=== PATIENT | male | born 2000 | race Caucasian/White ===

== ENCOUNTER 2022-11-17 20:49 | Observation (INO) | payer OTHER ==
[~2022-11-17] VITALS: Ht 180.3 cm; Wt 68.1 kg
[2022-11-17 21:38] LABS: BASOPHILS 0.2 % (0-2); EOSINOPHILS 0.7 % (0-6); HEMATOCRIT 47.4 % (35.0-50.0); HEMOGLOBIN 15.6 g/dL (12.0-18.0); LYMPHOCYTES 10.4 % (24-44); MCH 28.7 (27-36); MONOCYTES 6.8 % (0-12); NEUTROPHILS 81.9 % (39-80); PLATELET COUNT 237 K/uL (140-440); RBC 5.45 M/ul (4.3-5.7); RDW 13.5 (10.5-15.0)
[2022-11-17 21:52] LABS: ALBUMIN 4.4 g/dL (3.4-5.0); ALBUMIN/GLOBULIN RATIO 1.26 (1.1-2.4); ANION GAP 12.8 (7-21); BILIRUBIN, TOTAL 1.2 ng/dL (0.2-1.0); BUN/CREATININE RATIO 11.5 (6.0-28.6); CALCIUM 9.2 mg/dL (8.5-10.1); CREATININE, SERUM 1.13 mg/dL (0.70-1.30); POTASSIUM 3.8 mmol/L (3.5-5.1); PROTEIN, TOTAL 7.9 g/dL (6.4-8.2)
[2022-11-17 23:39] LABS: BILIRUBIN, URINE NEGATIVE (negative); BLOOD/HGB, URINE NEGATIVE (Negative); KETONE, URINE NEGATIVE (Negative); LEUK ESTERASE, URINE NEGATIVE (negative); NITRITE, URINE NEGATIVE (negative); PH, URINE 6.5 (5-7)
[2022-11-18] VITALS (8 sets, daily range): BP systolic 107–150; BP diastolic 40–52
--- NOTE | 2022-11-18 01:08 | NUR ---
PT TO FLOOR VIA STRETCHER WITH ED RN. REPORT RECEIVED. PT A&O X 4. ABLE TO TRANSFER SELF FROM STRETCHER TO BED. ORDERS RECEIVED. PT DENIES PAIN OR NAUSEA AT THIS TIME. ADMISSION ASSESSMENT COMPLETE. BOWEL TONES ACTIVE. ABD SOFT. IV ABX INFUSING PER ORDER. CPOX PLACED. PT AWARE OF NPO STATUS. VERBALIZES UNDERSTANDING. PERSONAL CARE SUPPLIES PROVIDED. MOM AND GIRLFRIEND TO SPEND THE NIGHT. LINENS PROVIDED. PT/FAMILY DENY QUESTIONS OR CONCERNS. PT ORIENTED TO ROOM AND NURSE CALL LIGHT. NO FURTHER NEEDS.
--- NOTE | 2022-11-18 01:30 | NUR ---
IV ABX COMPLETE. MAINTENANCE FLUIDS INFUSING PER ORDER. PT UP TO BR TO VOID 175 ML CLEAR YELLOW URINE. BACK TO BED, SABINE WELL. PT DENIES PAIN OR NAUSEA. FAMILY IN ROOM. NO FURTHER NEEDS.
--- NOTE | 2022-11-18 06:25 | NUR ---
PT UP TO BR WITH SBA TO VOID. BACK TO BED, SABINE FAIR. REPORTS ABD PAIN 10/10. PRN FOR PAIN ADMIN PER EMAR. PT DENIES NAUSEA. VS AND I&O OBTAINED. WARM BLANKET PROVIDED. NO FURTHER NEEDS.
--- NOTE | 2022-11-18 07:29 | CONS ---
[facility] [address], [place] [address] Signed DATE OF CONSULTATION: 11/18/2022 CHIEF COMPLAINT: Right lower quadrant abdominal pain. HISTORY OF PRESENT ILLNESS: Ari is a 21-year-old young man, who awoke in the morning with periumbilical abdominal pain that is now localized to the right lower quadrant. He was having some nausea. He came to the emergency room for evaluation. He was tender in the right lower quadrant with an elevated white blood cell count. CT scan confirmed his appendix about 11 mm in diameter with some mild periappendiceal inflammation. He was given pain control along with Rocephin and Flagyl. I was asked to admit him as a general surgeon on-call. He has done well overnight. His mom and girlfriend are with him this morning. PAST MEDICAL HISTORY: He fractured his arm when he was age 7 and had to have a cast. PAST SURGICAL HISTORY: None. SOCIAL HISTORY: He does not smoke or drink. He has no primary care provider. He prefers the [facility]. He has one sibling who is younger than him. He works for [employer]. Venancio is his father at [phone]. His mother is Kayy at [phone] and his girlfriend is Taiwo at [phone]. They live in [place], [place]. FAMILY HISTORY: None. REVIEW OF SYSTEMS: He had 10 systems reviewed and he talked about his arm fracture, although they cannot remember it was the right or the left. ALLERGIES: None. MEDICATIONS: None. PHYSICAL EXAMINATION: VITAL SIGNS: His blood pressure is 107/49, heart rate is 60, respiratory rate is 18, temperature is 98.1. He is 99% on room air. He is 5 feet 11 inches at 68 kg with a body mass index of 20. Electronically Signed By: LAURIE SULLIVAN MD 11/18/22 0729 PATIENT NAME: ARI TURNER CONSULTATION DATE OF : 02 REPORT #: [id number] PHYSICIAN: LAURIE SULLIVAN MD PCP: NO PRIMARY CARE PHYSICIAN REPORT IS CONFIDENTIAL AND NOT TO BE RELEASED WITHOUT AUTHORIZATION [facility] [address], [place] [address] Signed GENERAL: On exam, Ari is a 21-year-old young man, who is lying supine in his hospital bed, sleeping. His mom and girlfriend are in the room. He does not have his contact lenses in place and so he cannot see very far. He does not appear systemically ill or toxic. LUNGS: Clear to auscultation bilaterally. HEART: Regular rate and rhythm without murmurs. ABDOMEN: Flat, but he is certainly tender in the right lower quadrant, if not some mild localized peritoneal signs and symptoms. LABORATORY DATA: His white blood cell count is 16,000, hemoglobin 15, neutrophils 82. Electrolytes are unremarkable. UA was negative. Albumin is 4.4. RADIOGRAPHIC STUDIES: CT scan of the abdomen and pelvis is reviewed, both the images and the report. We can see the inflamed thickened appendix in the right lower quadrant with some mild periappendiceal inflammation. ASSESSMENT AND PLAN: Ari is a 21-year-old young man, who presents with acute appendicitis. He has been admitted, given IV fluids, pain control and antibiotics. I reviewed with him the above findings. I brought a brochure today on appendicitis. We looked at it page by page. He understands the location and function of the appendix. We have discussed laparoscopic versus open appendectomy. We have reviewed the expected intraop and postop course. There is risk including, but not limited to bleeding, infection, scarring, change in contour of the skin, damage to bowel, appendiceal stump leak, postoperative intra-abdominal abscess, incisional hernias and other unforeseen comorbidities. He had expressed understanding and would like to proceed. We will be adding him on to our OR schedule this morning. They have expressed understanding and agreed with the above plan. Laurie Sullivan MD ALB/MODL /[id number] cc: Laurie Sullivan MD Electronically Signed By: LAURIE SULLIVAN MD 11/18/22 0729 PATIENT NAME: ARI TURNER CONSULTATION DATE OF : 02 REPORT #: [id number] PHYSICIAN: LAURIE SULLIVAN MD PCP: NO PRIMARY CARE PHYSICIAN REPORT IS CONFIDENTIAL AND NOT TO BE RELEASED WITHOUT AUTHORIZATION [address] [address] Signed Copies: LAURIE SULLIVAN MD ~ Electronically Signed By: LAURIE SULLIVAN MD 11/18/22 0729 PATIENT NAME: ARI TURNER CONSULTATION DATE OF : 02 REPORT #: [id number] PHYSICIAN: LAURIE SULLIVAN MD PCP: NO PRIMARY CARE PHYSICIAN REPORT IS CONFIDENTIAL AND NOT TO BE RELEASED WITHOUT AUTHORIZATION
--- NOTE | 2022-11-18 07:38 | NUR ---
RECEIVED REPORT FROM NOC NURSE. PT IS A/O, RESPIRATIONS EVEN AND REGULAR. STATES HE IS COMFORTABLE ATT. IV FLUIDS RUNNING. MOM AND GIRLFRIEND AT BEDSIDE.
--- NOTE | 2022-11-18 08:29 | NUR ---
PT [place] GIVEN, GIRLFRIEND ASSISTING, VERBAL DIRECTIONS GIVEN, DAD IN RM WELL NOTHING ZENA TO REPORT
--- NOTE | 2022-11-18 08:50 | NUR ---
SPOKE TO PATIENT ABOUT THE DISCHARGE PLAN.PATIENT LIVES WITH HIS PARENTS WHO WILL HELP NEEDED. PATIENT ALSO HAS A GIRL FRIEND WHO CAN HELP NEEDED. PATIENT CAN DO HIS OWN ADLS. PATIENT'S PARENTS TAKE CARE OF FOOD AND HOUSING. PATIENT HAS NO CASE MANAGEMENT NEEDS THAT ARE IDENTIFIED AT THIS TIME. WOOD SHOP TEACHER WILL MONITOR THE DISCHARGE PLAN CLOSELY FOR ANY NEEDS. PATIENT AND FATHER REFUSE WOOD SHOP TEACHER TO FIND PATIENT A PCP.
--- NOTE | 2022-11-18 09:52 | NUR ---
PT AWAY AT SURGERY
--- NOTE | 2022-11-18 11:57 | NUR ---
11/18/22 1157 Alissa Kong PT TO PACU SLEEPING O2 6L VIA MASK. FOGGING NOTED IN MASK. ORAL AIRWAY IN PLACE
--- NOTE | 2022-11-18 13:43 | NUR ---
PT GONE TO SURGERY. DAD IN ROOM. DAD DENIED NEEDS. CONSENTED TO PRAYER. PRAYED.
--- NOTE | 2022-11-18 16:27 | OR ---
[facility] [address] [place], [place] [address] Signed DATE OF OPERATION: 11/18/2022 SURGEON: Pablito Sullivan MD PREOPERATIVE DIAGNOSIS: Acute inflamed appendicitis. POSTOPERATIVE DIAGNOSIS: Acute inflamed appendicitis. PROCEDURE: Laparoscopic appendectomy. ESTIMATED BLOOD LOSS: None. INDICATIONS: Ari is a 21-year-old young man, who awoke with periumbilical pain, it then localized to the right lower quadrant. He came into the emergency room for evaluation. He was having some nausea. He was tender on evaluation with an elevated white blood cell count. CT scan confirmed his appendix was a little dilated around 11 mm with mild periappendiceal inflammation. He was given some pain control along with Rocephin and Flagyl. I have been asked to admit him as a general surgeon on-call. I met with Ari and his mother and girlfriend earlier this morning. I had reviewed the above findings with him. I had given them a brochure on the appendix. They understand the location and function of the appendix. We discussed laparoscopic versus open appendectomy. We reviewed the expected intraop and postop course. There is risk including, but not limited to bleeding, infection, scarring, change in contour of the skin, appendiceal stump leak, postoperative intra-abdominal abscess, incisional hernias and other unforeseen comorbidities. They had expressed understanding and wished to proceed. PROCEDURE NOTE: Ari was taken into our operating room and placed in the supine position under general endotracheal tube anesthesia. He was already on preoperative antibiotics along with subcutaneous Lovenox. SCDs were utilized. Hadley catheter was inserted with return of clear yellow urine without difficulty. He was prepped and draped in the usual sterile fashion. We placed our trocars in our usual positions under direct visualization of the camera without difficulty. We could see the tip of the appendix coming up from just below the pelvic brim. It took just a few minutes to free up the lateral side of the cecum and near the base of the appendix to bring it up into the operative field. The Electronically Signed By: PABLITO SULLIVAN MD 11/18/22 1627 PATIENT NAME: ARI TURNER OPERATIVE REPORT DATE OF : 02 REPORT #: [id number] PHYSICIAN: PABLITO SULLIVAN MD PCP: NO PRIMARY CARE PHYSICIAN REPORT IS CONFIDENTIAL AND NOT TO BE RELEASED WITHOUT AUTHORIZATION [facility] [address], [place] [address] Signed terminal ileum was adherent along the length of the appendix. It took just a few minutes with very judicious cautery and blunt dissection to separate the two structures. We the appendix at the base with the help of our retractors. We divided the mesoappendix with the appendiceal artery with vascular load on the linear stapler. There was good hemostasis on the staple line. We then used the GI load on linear stapler and we divided the base of the appendix from the cecum without difficulty. Again, there was excellent hemostasis. We placed the appendix into an EndoCatch bag and took it out through the right subcostal trocar site. We used our laparoscopic suturing device to pass 0-Vicryl suture on either side of the fascia of the right subcostal trocar site. This was tied down to close this fascia primarily. After this, we removed the remaining two trocars and allowed the gas to escape. The appendix was passed off the field for photodocumentation. We had taken pictures throughout the surgery for photodocumentation as well. We closed the fascia of the supraumbilical trocar site with interrupted [id number]-[id number] and simple 0-Vicryl sutures. Local anesthetic was injected into all trocar sites. Each trocar site was irrigated and suctioned out until clear. We closed the skin and dermis of each trocar site with interrupted 3-0 subcuticular Monocryl sutures. Mastisol and Steri-Strips were applied to all three incisions. Dry gauze and tape was applied over this. His Hadley catheter was removed without difficulty. He was awakened from his anesthesia, extubated in the OR and taken to recovery room in stable condition. Pablito Sullivan MD ALB/MODL /[id number] cc: Pablito Sullivan MD Copies: PABLITO SULLIVAN MD ~ Electronically Signed By: PABLITO SULLIVAN MD 11/18/22 1627 PATIENT NAME: ARI TURNER OPERATIVE REPORT DATE OF : 02 REPORT #: [id number] PHYSICIAN: PABLITO SULLIVAN MD PCP: NO PRIMARY CARE PHYSICIAN REPORT IS CONFIDENTIAL AND NOT TO BE RELEASED WITHOUT AUTHORIZATION
--- NOTE | 2022-11-18 20:10 | NUR ---
Asssed pt, mild pain, gave dilauded. Walked to bathroom to void. Family at bed side.
[2022-11-19 01:26] VITALS: BP 124/45
--- NOTE | 2022-11-19 01:39 | NUR ---
Gave pt 2 tabs daysi, also notified pt that lab will be drawing morning labs around 0400 as pt has extreme fear of needles. Girlfriend at bedside.
[2022-11-19 05:16] LABS: BASOPHILS 0.3 % (0-2); HEMATOCRIT 39.4 % (35.0-50.0); HEMOGLOBIN 12.8 g/dL (12.0-18.0); LYMPHOCYTES 11.1 % (24-44); MCH 28.5 (27-36); MCHC 32.6 g/dl (30-36); MCV 87.2 fl (81-99); MONOCYTES 8.1 % (0-12); NEUTROPHILS 80.5 % (39-80); PLATELET COUNT 190 K/uL (140-440); RBC 4.51 M/ul (4.3-5.7); RDW 13.8 (10.5-15.0)
[2022-11-19 05:28] LABS: ANION GAP 11.1 (7-21); BUN/CREATININE RATIO 10.22 (6.0-28.6); CALCIUM 8.4 mg/dL (8.5-10.1); CREATININE, SERUM 0.88 mg/dL (0.70-1.30); MAGNESIUM 1.6 mg/dL (1.8-2.4); PHOSPHORUS, INORGANIC 4.3 mg/dL (2.5-4.9); POTASSIUM 4.1 mmol/L (3.5-5.1)
[2022-11-19 06:38] VITALS: BP 136/55
--- NOTE | 2022-11-19 07:28 | NUR ---
REPORT RECEIVED FROM GINNY MONK. PT RESTING IN BED, JUST FINISHED WALKING. PT REPORTS 3/10 PAIN IN ABDOMEN THAT HE STATES IS WELL CONTROLLED. PT DENIES NEED FOR ADDITIONAL PAIN MEDICAITON. PT REPORTS HE CONTINUES TO PASS GAS. PT REPORTS HUNGER AND REQUESTS "REAL FOOD." PT UPDATED ON PLANOF CARE, VERBALIZES UNDERSTANDING AND STATES HIS QUESTION SHAVE BEEN ANSWERED. FAMILY AT BEDSIDE. OXYGEN SATURATION 99% ON ROOM AIR. NO ADDITIONAL REQUESTS OR COMPLAINTS. CALL LIGHT WITHIN REACH. BED RAILS UP.
--- NOTE | 2022-11-19 07:41 | NUR ---
MORNING ASSESSMENT AND MEDICATION DUE. PT WATCHING CARTOONS WITH GIRLFRIEND AND FATHER AT BEDSIDE. PT REPORTS 2/10 ABOMINAL PAIN THAT IS WELL CONTROLLED AT THIS TIME. PT DENIES NEED FOR ADDITIONAL PAIN MEDICAITON AT THIS TIME. IV WNL, WITH NO S/S OF PHELBITIS SEEN, BRISK BLOOD RETURN SEEN. IV ABX STARTED. PT ALERT AND ORIENTED TO ALL. HEART TONES REGULAR. LUNG SOUNDS CLEAR. PT TOLERATING ROOM AIR WITH OXGYEN SATURATIONS ABOVE 96%. ABDOMEN SOFT BUT TENDER. BOWERL TONES ACTIVE. PT REPORTS HE IS "PASSING LOTS OF GAS." PT DENIES NAUSEA. GAUZE DRESSINGS OVER ABDOMINAL LAP SITES X3 SHOW SCANT AMOUNT OF RED SHADOWING, ~20% OF DRESSING. PT CONTINUES TO REQUEST MORE TO EAT, AWAITING MD ORDER. PT DEMONSTRATES USE OF I.S. REACHING 2000ML X5. NO ADDITIONAL REQUESTS OR COMPLAINTS. CALL LIGHT WITHIN REACH. BED RAILS UP. FAMILY AT BEDSIDE.
--- NOTE | 2022-11-19 09:10 | NUR ---
Spoke with Dr. Sullivan, he plans on dc for this pt. Spoke with pt, girlfriend, and pts dad. They all deny needs. Pt will dc to home today.
--- NOTE | 2022-11-19 09:19 | NUR ---
IV PUMP ALARMING, IV ABX COMPLETE. IV MAGNESIUM STARTED. PT RESTING WITH EYES CLOSED BUT AWAKENS WHEN DR ROSY ARRIVES. PLAN OF CARE REVIEWED WITH PT. PT VERBALIZES UNDERSTANDING AND STATES HIS QUESTIONS HAVE BEEN ANSWERED. DIET ADVANCED TO REGULAR AND BREAKFAST ORDER PLACED. 20 MINUTES SPENT WITH PT REVIEWING HOME DIET, ACTIVITY LIMITATIONS, MEDCIATION AND OTHER DISCHARGE INSTRUCTIONS. PT ANTICIPATING DISCHRAGE LATER THIS SHIFT. NO ADDITIONAL REQUESTS OR COMPLAINTS. CALL LIGHT WITHIN REACH. BED RAILS UP.
[2022-11-19 09:39] VITALS: BP 120/43
--- NOTE | 2022-11-19 09:51 | NUR ---
pts father requests rx to take to pharamcy while pt is eating and finishing iv infusions. rx given to pts father. no additional needs at this time. pt tolerating soft diet well. call light within reach. bed rails up. girlfriend at bedside.
[2022-11-19] MEDS ORDERED: HYDROCODON-ACE1 EAC8 PO (10:14)
[2022-11-19] MEDS ORDERED: AUGMENTIN 500-1 EACH PO (10:14)
--- NOTE | 2022-11-19 10:15 | NUR ---
MED REC COMPLETE
--- NOTE | 2022-11-19 11:02 | NUR ---
PT READY FOR DISCHARGE. PT REPORTS 4/10 PAIN AND REQUESTS PAIN MEDICATION PRIOR TO DISCHARGE. PT DENIES NAUSEA. TOELRATED SOFT DIET WELL. PT REQUESTS TO TAKE ZOFRAN PRIOR TO DISCHARGE "BECUASE I GET CAR SICK." SEE MAR FOR MEDICATINO GIVEN. LAP SITES X3 REMAINS C/D/I WITH NO DRAINAGE SEEN. IV DC'D PER PROTOCOL. PT REQUESTS TO SHOWER PRIOR TO DISCHARGE. DISCHRAGE INSTRUCTIONS REVIEWED IN DETAIL WITH PT AND PTS GIRLFRIEND. PT VERBALIZES UNDERSTANDING OF INSTRUCTIONS, ACTIVITY RESTRICTIONS, MEDICATIONS, WOUND CARE AND FOLLOW UP AND STATES HIS QUESTIONS HAVE BEEN ANSWERED. PT UP TO SHOWER, ASSISTANCE FROM GIRLFRIEND. NO ADDITONAL NEEDS. PT REPORTS HE WILL CALL WHEN HE IS READY TO LEAVE. CALL LIGHT WITHIN REACH.
--- NOTE | 2022-11-19 11:30 | NUR ---
IN TO ANSWER CALL LIGHT. PT REPORTS "I AM READY TO LEAVE." VITALS COMPLETE. PT ACCOMPANIED BY GINNY MULLINS VIA WHEELCHAIR OUT TO VEHICLE. QUESTIONS ANSWERED. BELONGINGS RETURNED NO OTHER NEEDS FROM THIS RN.
[2022-11-19 11:31] VITALS: BP 122/53
--- NOTE | 2022-11-19 15:23 | PATH ---
[facility] [address] [place], [place] [address] Signed SPECIMEN(S): A APPENDIX SPECIMEN SOURCE: A. APPENDIX CLINICAL HISTORY: Acute appendicitis. FINAL PATHOLOGIC DIAGNOSIS: Appendix, appendectomy: - Acute appendicitis with periappendicitis and serositis. - Focal mucosal necrosis. JVR:abby:[id number] MICROSCOPIC EXAMINATION: Histologic sections of all submitted blocks are examined by light microscopy. These findings, together with the gross examination, support the pathologic diagnosis. GROSS DESCRIPTION: The specimen, labeled and designated "Hank, appendix," is received in formalin and consists of Specimen: Appendix with mesoappendix. Dimensions: 4.5 x 0.7 cm. Serosa: Dark red and hemorrhagic. Defect: Not grossly identified. Inking: Staple line is inked black. Mucosa: Dark red and hemorrhagic. Fecalith: Not grossly identified. Additional: None. Assistant Financial Accountant sections are submitted in (A1). JS (under the direct supervision of a pathologist) The Gross Description was prepared using a voice recognition system. The report was reviewed for accuracy; however, sound-alike word errors, addition and/or deletions may occur. If there is any question about this report, please contact Client Services. PERFORMING LABORATORY: Technical component was performed by [facility], [address] [place] [id number] (CLIA# [id number]). Professional interpretation was performed by [facility] [place] [place] [facility], PATIENT NAME: TODD TURNERSumeet Steward PATHOLOGY DATE OF : 02 REPORT #: [id number] PHYSICIAN: RAHEEL PATHOLOGY PCP: NO PRIMARY CARE PHYSICIAN REPORT IS CONFIDENTIAL AND NOT TO BE RELEASED WITHOUT AUTHORIZATION [address] [place], [place] [address] [address] [place] [address] (CLIA#: [id number]). Diagnostician: Brant Conn MD Pathologist Electronically Signed 11/19/2022 Copies: ~ PATIENT NAME: ANGELITO TURNER PATHOLOGY DATE OF : 02 REPORT #: [id number] PHYSICIAN: RAHEEL PATHOLOGY PCP: NO PRIMARY CARE PHYSICIAN REPORT IS CONFIDENTIAL AND NOT TO BE RELEASED WITHOUT AUTHORIZATION
--- NOTE | 2022-11-20 06:37 | DS ---
[facility] [address] [place], [place] [address] Signed ADMISSION DATE: 11/18/2022 DISCHARGE DATE: 11/19/2022 FINAL DIAGNOSIS: Acute inflamed appendicitis. PROCEDURES: 1. Laparoscopic appendectomy. 2. CT abdomen and pelvis. HISTORY OF PRESENT ILLNESS: Ari is a 21-year-old young man, who is working for [employer]. He still lives with his parents at home in [place], [place]. He woke up and was having periumbilical abdominal pain that is localized to the right lower quadrant. He was nauseated. He came to the emergency room for evaluation. He was tender just below McBurney's point with an elevated white blood cell count. CT scan of abdomen and pelvis showed his inflamed appendix at 11 mm with mild periappendiceal inflammation. I have been asked to admit him as a general surgeon on-call. He received IV fluids, pain control and Rocephin and Flagyl overnight. HOSPITAL COURSE: I met with Ari, his mom and his girlfriend first thing in the morning. I reviewed the above findings with them. I gave them a brochure and went over in detail on appendicitis. We took him to the operating room later that morning for his uncomplicated laparoscopic appendectomy. He did well both intraop and postop. This morning, he looks and feels much better. He has been asking to increase his diet. He has had lots of flatus. His abdomen is flat. The nausea is completely resolved. We left him on the Rocephin and Flagyl. He has done well with his hydrocodone. The incisions are all quite satisfactory. Due to his progress, we are going to be discharging him to home with his family. DISCHARGE PLANS AND MEDICATIONS: Ari will go home with a prescription for Augmentin 500 mg one tablet p.o. b.i.d. for three days. I will give him five days total of antibiotics. He is written for [place] 10/325 one tablet p.o. q.6 hours p.r.n. for severe postoperative pain, dispense 20 tablets with no refills. He can also use ibuprofen, Tylenol or Aleve for otbw-ip-mzocnfmg postoperative pain. This can be purchased [id number]. He has been instructed not to do any heavy pushing, pulling, or lifting over about 20 pounds. He can return to work in 7 to 10 days under light duty status. He is welcome to perform his activities of daily living including walking up and down stairs, showering and bathing as usual. Steri-Strips will stay in place. He will shower with Steri-Strips Electronically Signed By: LAURIE SULLIVAN MD 11/20/22 0637 PATIENT NAME: ARI TURNER DISCHARGE SUMMARY DATE OF : 02 REPORT #: [id number] PHYSICIAN: LAURIE SULLIVAN MD PCP: NO PRIMARY CARE PHYSICIAN REPORT IS CONFIDENTIAL AND NOT TO BE RELEASED WITHOUT AUTHORIZATION [facility] [address] [place] [id number] Signed and once they become loose, he can remove them. He will return to my office in 7 to 14 days for his surgical followup. He, his girlfriend and his dad have all expressed understanding and agreed with the above plan. Laurie Sullivan MD ALB/MODL /[id number] cc: Laurie Sullivan MD Copies: LAURIE SULLIVAN MD ~ Electronically Signed By: LAURIE SULLIVAN MD 11/20/22 0637 PATIENT NAME: ARI TURNER DISCHARGE SUMMARY DATE OF : 02 REPORT #: [id number] PHYSICIAN: LAURIE SULLIVAN MD PCP: NO PRIMARY CARE PHYSICIAN REPORT IS CONFIDENTIAL AND NOT TO BE RELEASED WITHOUT AUTHORIZATION
== END 2022-11-19 11:35 | disposition home or self-care (01) ==
LOC: ED 20:49 → MS 20:51
PROVIDERS: Emergency Medicine; ADMIT Colon & Rectal Surgery; ATTEND Colon & Rectal Surgery
PROC: 0DTJ4ZZ Resection of Appendix, Percutaneous Endoscopic Approach (ICD-10-PCS; principal; 2022-11-18 13:45)
DX: K35.31 Acute appendicitis with localized peritonitis and gangrene, without perforation (principal)
CPT/HCPCS: 00840; 36415; 74177; 80048; 80053; 81003; 83690; 83735; 84100; 85025; 96366; 96372; 96375; 96376; 99285-25; C9113; G0378; J0330; J0696; J1100; J1170; J1650; J1885; J2250; J2405; J2704; J2765; J3010; J3475; J7030; J7121; Q9967